=== PATIENT | female | born 1940 | race Caucasian/White ===

== ENCOUNTER 2017-08-24 14:49 | Inpatient (IN) | payer MEDICARE, OTHER ==
[2017-08-24 15:20] LABS: #Lymphocytes 1.3 thou/uL (1.20-3.40); #Monocytes 0.6 thou/uL (0.11-0.59); #Neutrophils 9.9 thou/uL (1.40-6.50); %Basophils 0.1 % (0.0-1.0); %Lymphocytes 10.6 % (21.0-51.0); %Monocytes 5.3 % (0.0-10.0); Mean Platelet Volume 6.6 fL (7.4-10.4); Red Blood Cell (RBC) Count 3.54 mill/uL (4.20-5.40); White Blood Cell (WBC) Count 11.8 thou/uL (4.8-10.8)
--- NOTE | 2017-08-24 15:37 | RAD ---
AP VIEW CHEST 08/24/17 HISTORY: Cardiac palpitations. AP view chest obtained on 08/24/17. AP view chest demonstrates the lungs to be well aerated. No evidence of active intrathoracic disease is seen. No evidence of effusions, pneumonia, or pneumothorax seen. IMPRESSION: Unremarkable AP view chest. POS: [facility]
[2017-08-24 15:46] LABS: ALT (SGPT) 13 U/L (8-55); AST (SGOT) 13 U/L (5-34); Alkaline Phosphatase 82 U/L (40-150); Anion Gap 14 mmol/L (10-20); BUN (Urea Nitrogen) 15 mg/dL (9.8-20.1); Bilirubin, Total 0.7 mg/dL (0.2-1.2); Calc. Creatinine Clearance 0 mL/min (70-130); Calcium 11.2 mg/dL (7.8-10.44); Carbon Dioxide 21 mmol/L (23-31); Chloride 103 mmol/L (98-107); Estimated GFR-MDRD 39; Globulin 2.9 g/dL (2.4-3.5)
[2017-08-24 15:51] LABS: Troponin I 0.011 ng/mL (< 0.028)
[2017-08-24] MEDS ORDERED: Ondansetron ODT 4 MG TAB PO PRN (20:57)
[2017-08-24] MEDS ORDERED: Metoprolol Tartrate 5 MG/5 ML VIAL IVP PRN (20:57)
[2017-08-24] MEDS ORDERED: Acetaminophen 325 MG TAB PO PRN (20:57)
[2017-08-24] MEDS ORDERED: HYDROcodone/Acetaminophen 10/325 mg Tablet PO PRN (20:57)
[2017-08-24] MEDS ORDERED: HYDROcodone/Acetaminophen 5/325 mg Tablet PO PRN (20:57)
[2017-08-24] MEDS ORDERED: Enoxaparin Sodium 100 MG/ML SYRINGE SC SCH (21:00)
[2017-08-24] MEDS ORDERED: Dextrose 5% in Water 1,000 ML IV PRN (21:21)
[2017-08-24] MEDS ORDERED: Dextrose 50% Abboject 50 ML SYRINGE SLOW IVP PRN (21:21)
[2017-08-24] MEDS ORDERED: HumaLOG 300 UNITS/3 ML VIAL SC PRN (21:21)
[2017-08-24] MEDS: predniSONE 20 MG TAB PO SCH (21:36)
[2017-08-24] MEDS: Potassium Chloride 20 MEQ TAB PO SCH (21:36)
[2017-08-24] MEDS: Famotidine 20 MG TAB PO SCH (21:37)
[2017-08-24 21:55] LABS: Troponin I 0.011 ng/mL (< 0.028)
[2017-08-25] MEDS: Potassium Chloride 20 MEQ TAB PO SCH (00:33)
[2017-08-25 05:21] LABS: #Monocytes 0.4 thou/uL (0.11-0.59); %Basophils 0.2 % (0.0-1.0); %Eosinophils 0.4 % (0.0-10.0); %Lymphocytes 18.9 % (21.0-51.0); %Monocytes 6.7 % (0.0-10.0); Hematocrit 31.9 % (36.0-47.0); Mean Platelet Volume 6.6 fL (7.4-10.4); White Blood Cell (WBC) Count 5.5 thou/uL (4.8-10.8)
[2017-08-25 05:26] LABS: Hemoglobin A1c 6.4 % (4.0-6.0)
[2017-08-25 05:51] LABS: Anion Gap 10 mmol/L (10-20); BUN (Urea Nitrogen) 14 mg/dL (9.8-20.1); Calc. Creatinine Clearance 61 mL/min (70-130); Calcium 11.1 mg/dL (7.8-10.44); Carbon Dioxide 23 mmol/L (23-31); Chloride 111 mmol/L (98-107); Cholesterol 153 mg/dl (< 200 Desired); Estimated GFR-MDRD 46; LDL Cholesterol, Calculated 78 mg/dL; Magnesium 1.5 mg/dL (1.6-2.6)
[2017-08-25 05:57] VITALS: BMI 37.1
--- NOTE | 2017-08-25 06:07 | HP ---
DATE OF ADMISSION: 08/24/2017 TIME OF SERVICE: 1730 hours. CHIEF COMPLAINT: Palpitations and dizziness. The recent diagnosis of atrial fibrillation. PRIMARY CARE PHYSICIAN: Bassem Hayden M.D. HISTORY OF PRESENT ILLNESS: Ms. Wright is a very pleasant 77-year-old female with history of diabetes, rheumatoid arthritis on chronic prednisone, hypertension, and hyperlipidemia who about 2 weeks ago de veloped palpitations and dizziness particular with position change. She noted increased dyspnea on exertion that was better with rest and on a few occasions had very sli ght chest pressure and headache. No nausea, vomiting, sweats or diaphoresis. She went to see her primary care physician in [place] on both 08/21/2017 and 08/22/2017. She was d iagnosed with a UTI and placed on antibiotics, she was found to be in atrial fibrillation with RVR an d placed on Toprol-XL and Xarelto. She continued to have problems and feel poorly, so she decided to present to our emergency department for evaluation. Here, she had vitals revealing a heart rate in the 130s to 140s. She was given 15 mg dose of IV Card izem x1, but no drip and had an improvement of her heart rate down to 90s. By the time I saw her, sh e was back up in the 120s. At present, she denies any chest pain. No fevers or chills, no nausea an d vomiting. No cough or sputum production. She did receive a liter of normal saline and some Lasix in the emergency department. PAST MEDICAL HISTORY: 1. Diabetes mellitus type 2. 2. Rheumatoid arthritis. 3. Hyperlipidemia. 4. Hypertension. 5. New onset atrial fibrillation. PAST SURGICAL HISTORY: Include, 1. Total abdominal hysterectomy and bilateral salpingo-oophorectomy in 1985. 2. Ventral hernia repair around 2009 to 2010, laparoscopically with mesh. 3. She had neck and bone tumor, benign, removed remotely. 4. in 1963 for her only son. HOME MEDICATIONS: 1. Azo 95 mg p.o. as needed, she is currently off. 2. Toprol-XL 100 mg p.o. daily, which is a new medication. 3. Xarelto 10 mg p.o. q.p.m., which is a new medication. She was not placed on a loading dose. 4. Prednisone 10 mg p.o. q.p.m. 5. Amlodipine 5 mg p.o. daily, she is currently off. 6. She was taking blood pressure medicines that she cannot recall. 7. She is also on metformin, which she is currently off. ALLERGIES: NKDA. FAMILY HISTORY: Negative for maternal grandfather who at age 75 from a stroke. No history of c lotting or bleeding disorder, no immune dysfunction. SOCIAL HISTORY: Negative for daily alcohol. She says really 4-5 times a week, maybe 3 beers. She h as not had any in 3 weeks, does not get shaky or jittery or withdrawal and she does not drink. No hi story of IV drug use or tobacco use. Her son accompanies her today. REVIEW OF SYSTEMS: A 10-point review of systems was performed, negative for all other systems except stated as per HPI. PHYSICAL EXAMINATION: VITAL SIGNS: Temperature 98.8, pulse of 122, blood pressure 125/87, respiratory rate 18, satting 98% on room air. GENERAL: She is awake. She is alert. She is oriented x3. She is obese, pleasant white female, kris ears to be in no distress. HEENT: Normocephalic, atraumatic. Pupils equal, round and reactive to light bilaterally, mucous mem branes are moist. There is no visible lesion or thrush. NECK: Supple without lymphadenopathy, JVD or thyromegaly. LUNGS: Clear anteriorly, she has a faint bibasilar crackles. CARDIOVASCULAR: She has an irregularly irregular rhythm, she is tachycardic. I do not appreciate mu rmurs. ABDOMEN: Obese, is nontender, nondistended, no masses or organomegaly. EXTREMITIES: No cyanosis, no clubbing with trace pedal edema, which she says is stable for her. SKIN: Warm, moist, and well perfused. She has no other rashes or lesions. MUSCULOSKELETAL: Normal to inspection. She has no ulnar deviation. No acute joint inflammation, no palpable effusions. NEUROLOGIC: Cranial nerves II-XII are grossly intact without any focal neurologic deficits. LABORATORY EVALUATION: CMP shows sodium 135, potassium 3.1, chloride 103, bicarb 21, BUN 15, creatin ine 1.32, which is known from her baseline. Calcium is 11.2 and glucose 171. Liver functions normal . CK-MB was normal at 0.3. Troponin I normal at 0.011 and BNP was 686. CBC showed a white count of 11.8, hemoglobin 11.3, hematocrit of 36.0, platelet count is 243,000, 84% granulocytes and 1%bands. Chest x-ray showed no acute cardiopulmonary disease. ASSESSMENT AND PLAN: 1. New onset atrial fibrillation, started a few days ago. She responded well to Cardizem here. We will try to rate control tonight with oral Cardizem 60 mg q.6 hours. We will ask Cardiology to evalu ate. In the meantime, place her on full dose Lovenox, get serial cardiac biomarkers and watch on tel emetry. She may be a good candidate for DC cardioversion, will defer to Cardiology's expertise. If she happens to convert tonight, I will continue her Cardizem and convert her over to long-acting oral . 2. Diabetes mellitus type 2. She is currently not on any therapy. She is off metformin. We will g et q.i.d. a.c. and at bedtime Accu-Cheks. We will use sliding scale insulin low dose to keep her sug ar is well controlled. 3. Rheumatoid arthritis, prednisone dependent. She has an appointment with a station worker soon to hopefully get off the prednisone. We will continue her regular dose for now. 4. Hyperlipidemia/primary cholesterol. She is not any antihyperlipidemic agent at present. Check a fasting lipid profile. 5. Hypertension. Blood pressure is okay. We will watch very closely. We will hold off any other m edications for the time being. The patient will be placed on full admit. We will get serial cardiac biomarkers, Accu-Cheks and slid ing scale insulin, Cardiology consultation, continue prednisone.
--- NOTE | 2017-08-25 08:33 | PDOC.PN ---
- Subjective Encounter Start Date: 08/25/17 Encounter Start Time: 08:32 Subjective: Seen and examined feeling better - Objective Resuscitation Status: Resuscitation Status FULL:Full Resuscitation Vital Signs & Weight: Vital Signs (12 hours) Temp Pulse Resp BP Pulse Ox 08/25/17 02:55 98.1 F 85 18 126/64 94 L 08/24/17 20:45 97.8 F 86 16 143/84 H 96 Weight Weight 203 lb 3.2 oz I&O: 08/24/17 08/25/17 08/26/17 06:59 06:59 06:59 Intake Total 360 Output Total 1000 Balance -640 Result Diagrams: 08/25/17 04:52 08/25/17 04:52 Additional Labs: Accuchecks 08/25/17 05:48 POC Glucose 190 H Phys Exam - Physical Examination Constitutional: NAD HEENT: PERRLA, moist MMs, sclera anicteric, TM's clear Neck: no nodes, no JVD, supple, full ROM Respiratory: no wheezing, no rales, no rhonchi, clear to auscultation bilateral Cardiovascular: no significant murmur, no rub, irregular Gastrointestinal: soft, non-tender, no distention, positive bowel sounds Musculoskeletal: no edema, pulses present Dx/Plan (1) New onset a-fib Code(s): I48.91 - UNSPECIFIED ATRIAL FIBRILLATION Status: Acute (2) Dyslipidemia Code(s): E78.5 - HYPERLIPIDEMIA, UNSPECIFIED Status: Acute (3) Palpitation Code(s): R00.2 - PALPITATIONS Status: Acute (4) Hypercalcemia Code(s): E83.52 - HYPERCALCEMIA Status: Acute (5) Anemia Code(s): D64.9 - ANEMIA, UNSPECIFIED Status: Acute (6) CKD (chronic kidney disease) stage 3, GFR 30-59 ml/min Code(s): N18.3 - CHRONIC KIDNEY DISEASE, STAGE 3 (MODERATE) Status: Acute - Plan 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
[2017-08-25] MEDS: Apixaban 5 MG TAB PO SCH ×2 (09:13→21:30)
--- NOTE | 2017-08-25 09:37 | CON ---
DATE OF CONSULTATION: 08/25/2017 HISTORY OF PRESENT ILLNESS: The patient is a pleasant 77-year-old woman who presents with weakness, palpitations and dyspnea. The patient had no previous cardiac history until recently when she was diagnosed with atrial fibrillation. The patient states that approximately a month ago she started having palpitations and weakness. She went to see her primary physician. She was found to be in atrial fibrillation. She was started on Xarelto and Toprol. The patient continued to feel extremely weak. She was arranged for Cardiology followup. The patient presented to the emergency room with increasing dyspnea. She denied having any chest discomfort. PAST MEDICAL HISTORY: 1. Diabetes mellitus. 2. Rheumatoid arthritis. 3. Hypertension. 4. Dyslipidemia. 5. History of colon carcinoma. PAST SURGICAL HISTORY: Abdominal hysterectomy, bilateral salpingo-oophorectomy , ,neck and bone tumor removal, ventral hernia repair and surgery for colon carcinoma. MEDICATIONS ON ADMISSION: Toprol 100 XL daily, Xarelto 10 mg daily, prednisone 10 at bedtime, Norvasc 5 daily. ALLERGIES: No known drug allergies. FAMILY HISTORY: No strong family history of heart disease. SOCIAL HISTORY: The patient does consume excessive amounts of alcohol. She is a nonsmoker. REVIEW OF SYSTEMS: Ten-point system otherwise unremarkable. No history of easy bruising or bleeding, bright red blood per rectum. She does report having difficulty with joint pain. PHYSICAL EXAMINATION: GENERAL: Obese woman in no acute distress. VITAL SIGNS: Blood pressure of 126/64. NECK: No jugular venous distention, no carotid bruits. LUNGS: Clear to auscultation. HEART: Irregular rate and rhythm with a normal S1, S2, no murmurs. ABDOMEN: Distended. EXTREMITIES: Showed trace edema. SKIN: Warm and dry. NEUROLOGIC: Nonfocal. VASCULAR: Radial pulses are 2+. LABORATORY: Sodium 140, potassium 4.3, chloride 111, bicarbonate 23, BUN 14, creatinine 1.16, glucose is 162. Her troponin was 0.02. Her white blood cell count 5.5, hemoglobin 10.2, hematocrit 31.9 and her platelets were 202. Her EKG revealed atrial fibrillation with a nonspecific ST-T wave abnormality. Chest x-ray revealed no cardiomegaly with clear lung ibarra. IMPRESSION: 1. New onset atrial fibrillation. 2. Hypertension. 3. Diabetes mellitus. 4. Dyslipidemia. 5. Rheumatoid arthritis. This patient presents with very symptomatic atrial fibrillation despite being on high dose of Toprol. At this time would recommend the patient undergo electrical cardioversion and be placed on antiarrhythmic therapy. I explained the risks involved with electrical cardioversion. Will perform a transesophageal echo and make sure there is no evidence of a thrombus. The risks involved in the procedure explained. The patient's wishes to proceed. PLAN: 1. Proceed with electrical cardioversion. 2. Switch to Eliquis 5 mg p.o. b.i.d. 3. Check echocardiogram. 4. We will follow this patient with you through her hospitalization. MARVIN
[2017-08-25 12:04] LABS: Hematocrit 31.6 % (36.0-47.0)
[2017-08-25] MEDS ORDERED: Propofol 500 MG/50 ML VIAL ONE (13:33)
[2017-08-25] MEDS ORDERED: Diprivan 0 ML ONE (13:33)
[2017-08-25] MEDS ORDERED: Diprivan 20 ML ONE (13:34)
--- NOTE | 2017-08-25 14:19 | ECHO ---
TRANSESOPHAGEAL ECHOCARDIOGRAM: DATE OF PROCEDURE: 08/25/17 INDICATION: This is a 77-year-old woman with paroxysmal atrial fibrillation. DESCRIPTION OF PROCEDURE: The patient was taken to the PACU. The patient was sedated by anesthesiology. A transesophageal probe was placed in the distal esophagus and stomach. Echocardiographic images were obtained. The transesophageal probe was removed. FINDINGS: 1. Normal left ventricular systolic function. 2. Biatrial enlargement. 3. Moderate mitral regurgitation. 4. Mild tricuspid regurgitation. 5. No thrombus noted in the left atrium or left atrial appendage. 6. Atherosclerotic debris in the descending aorta. IMPRESSION: No formed thrombus in the left atrium or left atrial appendage.
--- NOTE | 2017-08-25 14:23 | OP ---
PROCEDURE NOTE: Date: 08/25/17 PROCEDURE: Electrical cardioversion. INDICATION: 77-year-old woman with paroxysmal atrial fibrillation. DESCRIPTION OF PROCEDURE: The patient taken to the PACU. The patient is sedated by anesthesiology. The patient was shocked with 200 joules of synchronized electricity. The patient converted to normal sinus rhythm. IMPRESSION: Successful electrical cardioversion.
[2017-08-25 16:32] LABS: Troponin I 0.013 ng/mL (< 0.028)
[2017-08-25] MEDS ORDERED: Propofol 200 MG/20 ML VIAL ONE (16:58)
[2017-08-25] MEDS ORDERED: Enoxaparin Sodium 100 MG/ML SYRINGE SC SCH (21:00)
[2017-08-25] MEDS: predniSONE 20 MG TAB PO SCH (21:30)
[2017-08-25] MEDS: Famotidine 20 MG TAB PO SCH (21:30)
[2017-08-26] MEDS: Apixaban 5 MG TAB PO SCH (08:59)
--- NOTE | 2017-08-26 11:29 | PDOC.PN ---
- Subjective Encounter Start Date: 08/26/17 Encounter Start Time: 11:28 Subjective: Feeling better - Objective Resuscitation Status: Resuscitation Status FULL:Full Resuscitation Vital Signs & Weight: Vital Signs (12 hours) Temp Pulse Resp BP Pulse Ox 08/26/17 04:00 98.2 F 75 11 L 135/61 95 Weight Weight 204 lb 3.2 oz I&O: 08/25/17 08/26/17 08/27/17 06:59 06:59 06:59 Intake Total 360 1330 Output Total 1000 1100 Balance -640 230 Result Diagrams: 08/25/17 11:23 08/25/17 15:57 Additional Labs: Accuchecks 08/26/17 08/25/17 08/25/17 05:51 20:12 16:50 POC Glucose 165 H 131 H 114 H 08/25/17 11:17 POC Glucose 131 H Phys Exam - Physical Examination Constitutional: NAD HEENT: PERRLA, moist MMs, sclera anicteric, TM's clear Neck: no nodes, no JVD, supple, full ROM Respiratory: no wheezing, no rales, no rhonchi, clear to auscultation bilateral Cardiovascular: RRR, no significant murmur, no rub Gastrointestinal: soft, non-tender, no distention, positive bowel sounds Musculoskeletal: no edema, pulses present Dx/Plan (1) New onset a-fib Code(s): I48.91 - UNSPECIFIED ATRIAL FIBRILLATION Status: Acute (2) Dyslipidemia Code(s): E78.5 - HYPERLIPIDEMIA, UNSPECIFIED Status: Acute (3) Palpitation Code(s): R00.2 - PALPITATIONS Status: Acute (4) Hypercalcemia Code(s): E83.52 - HYPERCALCEMIA Status: Acute (5) Anemia Code(s): D64.9 - ANEMIA, UNSPECIFIED Status: Acute (6) CKD (chronic kidney disease) stage 3, GFR 30-59 ml/min Code(s): N18.3 - CHRONIC KIDNEY DISEASE, STAGE 3 (MODERATE) Status: Acute - Plan 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
[2017-08-26 13:07] VITALS: BP 130/64; TEMP 97.8
--- NOTE | 2017-08-27 07:54 | DIS ---
For details of the history and physical and the consultative notes, refer to dictations on record. SUMMARY: Ms. Wright is a 77-year-old female patient, who presented here with palpitations and dizziness and got diagnosed with new onset atrial fibrillation. The patient was seen on consultation during t his hospitalization by fisher sponge hooking who felt the patient will benefit from cardioversion. The patien t did undergo transesophageal echocardiogram prior to this procedure. The patient has maintained ulices tained clinical improvement since having the procedure and has been cleared by Cardiology. The patie nt is deemed stable for discharge. DISCHARGE MEDICATIONS: The patient discharged on the following medications: Eliquis 5 mg p.o. b.i.d ., flecainide 50 mg p.o. q.12 hourly, metformin 1000 mg daily, Toprol-XL 25 mg p.o. b.i.d., prednison e 10 mg p.o. Total time spent including the face to face encounter with this patient today was 32 minutes.
== END 2017-08-26 17:44 | disposition home or self-care (01) | DRG 310 ==
LOC: ERS 14:49 → 2NO 18:00
PROVIDERS: ADMIT Internal Medicine Infectious Disease; ATTEND Internal Medicine Infectious Disease
PROC: B24BZZ4 Ultrasonography of Heart with Aorta, Transesophageal (ICD-10-PCS; principal; 2017-08-25)
PROC: 5A2204Z Restoration of Cardiac Rhythm, Single (ICD-10-PCS; 2017-08-25)
DX: I48.91 Unspecified atrial fibrillation (principal); E11.9 Type 2 diabetes mellitus without complications; N18.3 Chronic kidney disease, stage 3 (moderate); E83.52 Hypercalcemia; I12.9 Hypertensive chronic kidney disease with stage 1 through stage 4 chronic kidney disease, or unspecified chronic kidney disease; D64.9 Anemia, unspecified; M06.9 Rheumatoid arthritis, unspecified; E78.5 Hyperlipidemia, unspecified; E66.9 Obesity, unspecified; Z68.37 Body mass index [BMI] 37.0-37.9, adult; I34.0 Nonrheumatic mitral (valve) insufficiency
CPT/HCPCS: 36415; 36416; 71010; 80048; 80053; 80061; 82553; 83036; 83735; 83880; 84484; 85025; 90471; 90732; 92960; 93005; 93306; 93312; 96361; 96374; 96376; G0009; J1650; J2704; J7506

== ENCOUNTER 2018-01-01 08:23 | Outpatient (CLI) | payer MEDICARE ==
--- NOTE | 2018-01-01 11:26 | CT ---
PRE AND POST CONTRAST ENHANCED CT IMAGES OF SOFT TISSUES NECK: History: Patient with parathyroid scan. Patient has history of hypercalcemia. E83.52 Technique: Pre and post contrast enhanced CT images of soft tissue neck obtained. 25 second and 65 se cond delayed images obtained. FINDINGS: Images demonstrate a 6.5 x 11.5 x 12 mm area of soft tissue density with contrast enhancement in the posterior inferior aspect of the right thyroid lobe between the inferior posterior aspect of the righ t thyroid and the right paraesophageal region. This was seen on Image 42 on the contrast enhanced garcia ges and Image 45 on the noncontrast enhanced images. It is seen on sagittal reconstructed Image 112 a nd Image 71 on the coronal images. I am concerned about a parathyroid adenoma. The lesion has decreas ed density on precontrast enhanced images but enhances to the level of adjacent thyroid on the post c ontrast enhanced images. No other soft tissue neck masses or lesions seen. Also noted is significant ectasia of the right common carotid artery which extends medially into the prevertebral soft tissue in its distal common carotid portion. IMPRESSION: Right posterior soft tissue lesion compatible with a parathyroid adenoma as described above. POS: [facility]
--- NOTE | 2018-01-01 13:02 | NM ---
NUCLEAR MEDICINE PARATHRYOID SCAN WITH SPECT AND CT FUSION: DATE: 01/01/18. HISTORY: A 77-year-old female with E83.52, hypercalcemia. TECHNIQUE: IV injection of 23 mCi of Technetium 99m-sestamibi. Immediate and 1-hour planar scintigraphy of the neck, most of the head, and most of the chest, obtain ed in anterior, right anterior oblique, and left anterior oblique views. One-hour post-injection SPECT images obtained in sagittal, coronal, and axial planes. Noncontrast CT performed for anatomical localization. SPECT-CT fusion images generated. FINDINGS: There is an approximately 1.5 x 1.5 x 0.5 cm soft tissue density nodule close to the right tracheoeso phageal groove centered at the T2 level, located posterior and slightly inferior to the lower pole of the right lobe of the thyroid gland, which has a greater degree of sestamibi uptake than the adjacen t thyroid tissue. On the noncontrast CT, there is no intrinsic iodine demonstrated within it, and th erefore, this is consistent with a parathyroid adenoma rather than a thyroid adenoma. IMPRESSION: Excellent candidate for parathyroid adenoma located posterior and inferior to the lower pole of the r ight lobe of the thyroid gland. POS: [facility]
[2018-01-01] MEDS ORDERED: Iopamidol 370 76% 50 ML VIAL FS ONE (14:07)
[2018-01-01] MEDS ORDERED: Iopamidol 370 76% 100 ML VIAL ONE (14:07)
== END 2018-01-01 08:24 | disposition home or self-care (01) ==
LOC: CT 08:23
PROVIDERS: ATTEND Otolaryngology Plastic Surgery within the Head & Neck
DX: E83.52 Hypercalcemia (principal); D35.1 Benign neoplasm of parathyroid gland
CPT/HCPCS: 70492; 82565; A9500; 78072